=== PATIENT | male | born 1980 | race African-American/Black ===

== ENCOUNTER 2017-05-22 08:51 | Emergency (ER) | payer MEDICAID ==
[~2017-05-22] VITALS: Ht 165.1 cm; Wt 102.0 kg
[2017-05-22 08:57] VITALS: BP 149/91
== END 2017-05-22 10:30 | disposition home or self-care (01) ==
LOC: ER 09:31
DX: S83.91XA Sprain of unspecified site of right knee, initial encounter (principal); F17.200 Nicotine dependence, unspecified, uncomplicated; X58.XXXA Exposure to other specified factors, initial encounter; Y93.89 Activity, other specified; Y92.89 Other specified places as the place of occurrence of the external cause; Y99.8 Other external cause status
CPT/HCPCS: 99283

== ENCOUNTER 2017-06-17 08:38 | Emergency (ER) | payer MEDICAID ==
[~2017-06-17] VITALS: Ht 177.8 cm; Wt 109.0 kg
[2017-06-17 09:59] VITALS: BP 136/86
[2017-06-17] MEDS ORDERED: IBUPROFEN 600MG TABLET PO ONE (10:00)
== END 2017-06-17 12:06 | disposition home or self-care (01) ==
LOC: ER 08:51
DX: M25.461 Effusion, right knee (principal); M19.071 Primary osteoarthritis, right ankle and foot; M79.671 Pain in right foot; F17.200 Nicotine dependence, unspecified, uncomplicated; Z98.890 Other specified postprocedural states; X58.XXXA Exposure to other specified factors, initial encounter; Y93.89 Activity, other specified; Y92.018 Other place in single-family (private) house as the place of occurrence of the external cause
CPT/HCPCS: 73562; 73630; 99284; Z7610

== ENCOUNTER 2017-08-12 10:37 | Emergency (ER) | payer MEDICAID ==
[~2017-08-12] VITALS: Ht 177.8 cm; Wt 106.0 kg
[2017-08-12] MEDS ORDERED: PIPERACILLIN/TAZ 3.375G PREMIX 50 ML IV ONE (12:15)
[2017-08-12] MEDS ORDERED: MORPHINE SULFATE 4 MG/ML CPJ (NOT FOR IM USE) IV STA (12:19)
[2017-08-12] MEDS ORDERED: SODIUM CHLORIDE 0.9% 1,000 ML IV ONE (12:19)
[2017-08-12] MEDS ORDERED: ONDANSETRON HCL 4MG/2ML VIAL IV STA (12:19)
[2017-08-12 12:58] LABS: CHLORIDE 103 mEq/L (98-107)
[2017-08-12 13:01] LABS: BASOPHILS % 0.6 % (0.0-2.0); EOSINOPHILS % 1.3 % (0.0-5.0); HEMATOCRIT. 40.6 % (42.0-52.0); HEMOGLOBIN. 13.9 g/dL (14.0-18.0); LYMPHOCYTES % 26.8 % (20.0-50.0); MEAN CORPUSCULAR HEMOGLOBIN 31.3 pg (28.0-32.0); MEAN CORPUSCULAR VOLUME 91.4 fL (80.0-94.0); MEAN PLATELET VOLUME 7.8 fl (7.4-10.4); MONOCYTES % 11.5 % (2.0-8.0); NEUTROPHILS % 59.8 % (40.0-76.0); PLATELET 292 x1000/uL (130-400); RED BLOOD CELL COUNT 4.44 mill/uL (4.7-6.1); RED CELL DISTRIBUTION WIDTH 13.7 % (11.6-14.6)
[2017-08-12 13:09] LABS: PARTIAL THROMBOPLASTIN TIME 26.8 sec (23.4-31.0); PROTHROMBIN TIME 10.6 sec (9.4-11.6)
[2017-08-12] MEDS ORDERED: SODIUM BICARBONATE 4% (2.4MEQ) 5ML VIAL IV ONE (13:28)
[2017-08-12] MEDS ORDERED: LIDOCAINE HCL/PF 1% 10 MG/ML 5ML VIAL ONE (13:28)
[2017-08-12] MEDS ORDERED: MORPHINE SULFATE 10 MG/ML CPJ IV ONE (14:45)
[2017-08-12] MEDS ORDERED: ONDANSETRON HCL 4MG/2ML VIAL IV ONE (14:45)
[2017-08-12] MEDS ORDERED: KETOROLAC 30MG/ML VIAL IV ONE (16:45)
[2017-08-12] MEDS ORDERED: VANCOMYCIN 1 G PREMIX 200 ML IV SCH (16:45)
[2017-08-12 19:25] VITALS: BP 144/83
== END 2017-08-12 20:35 | disposition left against medical advice (07) ==
LOC: ER 11:32 → EDBEDREQ 16:47 → EDBEDREQTM 16:47 → ENRESERV 19:53 → ER 20:35 → CANBEDREQ 21:42
DX: M10.061 Idiopathic gout, right knee (principal); F17.200 Nicotine dependence, unspecified, uncomplicated; F12.10 Cannabis abuse, uncomplicated; R79.1 Abnormal coagulation profile
CPT/HCPCS: 20611; 36415; 73562; 80048; 83605; 84550; 85025; 85610; 85730; 86140; 87040; 87070; 87205; 89050; 89060; 93005; 96365; 96366; 96367; 96375; 96376; 99291; J1885; J2270; J2405; J2543; J3370; J3490; J7030; L1830; Z7610

== ENCOUNTER 2021-03-11 06:17 | Emergency (ER) | payer SELFPAY ==
[~2021-03-11] VITALS: Ht 175.3 cm; Wt 75.0 kg
[2021-03-11] MEDS ORDERED: HYDROCODONE/ACETAMINOPHEN 5/325MG TABLET PO ONE (08:30)
[2021-03-11] MEDS ORDERED: ONDANSETRON 4MG ODT PO ONE (08:30)
[2021-03-11] MEDS ORDERED: KETOROLAC 60MG/2ML VIAL IM ONE (08:30)
[2021-03-11] MEDS ORDERED: IBUP-2030 MT (09:40)
[2021-03-11] MEDS ORDERED: HYDR-4001 MT (09:40)
[2021-03-11 10:25] VITALS: BP 145/89
== END 2021-03-11 13:21 | disposition home or self-care (01) ==
LOC: ER 06:17
DX: M25.561 Pain in right knee (principal); M71.9 Bursopathy, unspecified; F12.10 Cannabis abuse, uncomplicated
CPT/HCPCS: 73562; 96372; 99283; J1885; L1830; Q0162

== ENCOUNTER 2021-03-23 13:28 | Inpatient (IN) | payer SELFPAY ==
[~2021-03-23] VITALS: Ht 175.3 cm; Wt 81.6 kg
[~2021-03-23 13:28] MED LIST: HYDR-4001 MT; IBUP-2030 MT
[2021-03-23] MEDS ORDERED: KETOROLAC 30MG/ML VIAL IV STA (14:12)
[2021-03-23] MEDS ORDERED: SODIUM CHLORIDE 0.9% 1,000 ML IV ONE (14:15)
[2021-03-23 14:43] LABS: BASOPHILS % 0.6 % (0.0-2.0); EOSINOPHILS % 1.2 % (0.0-5.0); HEMATOCRIT. 34.9 % (42.0-52.0); HEMOGLOBIN. 11.6 g/dL (14.0-18.0); LYMPHOCYTES % 12.6 % (20.0-50.0); MEAN CORPUSCULAR HEMOGLOBIN 33.2 pg (28.0-32.0); MEAN CORPUSCULAR VOLUME 99.6 fL (80.0-94.0); MEAN PLATELET VOLUME 8.1 fl (7.4-10.4); MONOCYTES % 10.1 % (2.0-8.0); NEUTROPHILS % 75.5 % (40.0-76.0); PLATELET 459 x1000/uL (130-400); RED CELL DISTRIBUTION WIDTH 14.9 % (11.6-14.6)
[2021-03-23 14:46] LABS: CHLORIDE 103 mEq/L (98-107)
[2021-03-23] MEDS ORDERED: VANCOMYCIN 1G PREMIX 200 ML IV ONE (16:00)
[2021-03-23] MEDS ORDERED: CEFTRIAXONE 1 G PREMIX 50 ML IV ONE (16:00)
[2021-03-23] MEDS ORDERED: POTASSIUM CHLORIDE 20MEQ TABLET SR PO ONE (16:30)
[2021-03-23] MEDS ORDERED: CLONIDINE 0.1MG TABLET PO PRN (17:30)
[2021-03-23] MEDS ORDERED: DOCUSATE SODIUM 100MG CAPSULE PO PRN (17:30)
[2021-03-23] MEDS ORDERED: MAGNESIUM/ALUMINUM HYDROXIDE/SIMETHICONE 30ML UDC PO PRN (17:30)
[2021-03-23] MEDS ORDERED: LORAZEPAM 2MG/ML CPJ IV PRN (17:30)
[2021-03-23] MEDS ORDERED: HYDROCODONE/ACETAMINOPHEN 5/325MG TABLET PO PRN (17:30)
[2021-03-23] MEDS ORDERED: HYDRALAZINE 20MG/ML VIAL IV PRN (17:30)
[2021-03-23] MEDS ORDERED: IPRATROPIUM/ALBUTEROL 0.5-3(2.5)MG/3ML NEB HHN PRN (17:30)
[2021-03-23] MEDS ORDERED: ONDANSETRON HCL 4MG/2ML INJ IV PRN (17:30)
[2021-03-23] MEDS ORDERED: DIPHENHYDRAMINE 50MG/ML VIAL IV PRN (17:30)
[2021-03-23] MEDS ORDERED: ACETAMINOPHEN 325MG TABLET PO PRN (17:30)
[2021-03-23] MEDS ORDERED: GUAIFENESIN 200MG/10ML SUGAR FREE UDC PO PRN (17:30)
[2021-03-23] MEDS: SODIUM CHLORIDE 0.45% 1,000 ML IV SCH (18:00)
[2021-03-23] MEDS ORDERED: PIPERACILLIN/TAZ 3.375G PREMIX 50 ML IV SCH (18:00)
[2021-03-23] MEDS: THIAMINE HCL 100MG TABLET PO SCH (19:07)
[2021-03-23] MEDS: MULTIVITAMINS,THER W-MINERALS TABLET PO SCH (19:07)
[2021-03-23 20:00] VITALS: BP 149/69
[2021-03-23] MEDS: MORPHINE SULFATE 2 MG/ML CPJ (NOT FOR IM USE) IV PRN (21:31)
[2021-03-23 21:45] VITALS: BP 149/69
[2021-03-23] MEDS: SODIUM CHLORIDE 0.9% INJ 3ML FLUSH IVF SCH (22:00)
[2021-03-24] MEDS ORDERED: PIPERACILLIN/TAZ 3.375G PREMIX 50 ML IV SCH
[2021-03-24] MEDS: PIPERACILLIN/TAZOBACTAM 3.375G in DEXT 5% WATER 50ML IV SCH ×4 (00:36→21:04)
[2021-03-24] MEDS: ENOXAPARIN 40MG/0.4ML SYR SUBCUT SCH ×2 (00:38→21:04)
[2021-03-24 04:00] VITALS: BP 149/79
[2021-03-24] MEDS: MORPHINE SULFATE 2 MG/ML CPJ (NOT FOR IM USE) IV PRN ×2 (05:17→16:20)
[2021-03-24 07:50] LABS: BASOPHILS % 0.4 % (0.0-2.0); EOSINOPHILS % 1.5 % (0.0-5.0); HEMATOCRIT. 27.9 % (42.0-52.0); LYMPHOCYTES % 20.1 % (20.0-50.0); MEAN CORPUSCULAR HEMOGLOBIN 34.4 pg (28.0-32.0); MEAN CORPUSCULAR VOLUME 99.7 fL (80.0-94.0); MEAN PLATELET VOLUME 7.9 fl (7.4-10.4); MONOCYTES % 9.8 % (2.0-8.0); NEUTROPHILS % 68.2 % (40.0-76.0); PLATELET 407 x1000/uL (130-400); RED CELL DISTRIBUTION WIDTH 14.6 % (11.6-14.6)
[2021-03-24 07:52] LABS: CHLORIDE 107 mEq/L (98-107)
[2021-03-24 08:07] LABS: HEMOGLOBIN. 9.6 g/dL (14.0-18.0)
[2021-03-24] MEDS: MULTIVITAMINS,THER W-MINERALS TABLET PO SCH (08:52)
[2021-03-24] MEDS: THIAMINE HCL 100MG TABLET PO SCH (08:52)
[2021-03-24] MEDS: FOLIC ACID 1MG TABLET PO SCH (08:52)
[2021-03-24] MEDS: SODIUM CHLORIDE 0.45% 1,000 ML IV SCH (10:39)
[2021-03-24 12:00] VITALS: BP 135/75
[2021-03-24] MEDS: SODIUM CHLORIDE 0.9% INJ 3ML FLUSH IVF SCH ×2 (14:00→21:04)
[2021-03-24] MEDS ORDERED: NALOXONE HCL 0.4MG/ML VIAL IV PRN (14:30)
[2021-03-24 16:00] VITALS: BP 154/84
[2021-03-24] MEDS: PREDNISONE 10MG TABLET PO SCH (19:04)
[2021-03-24] MEDS: CELECOXIB 200MG CAPSULE PO SCH (19:04)
[2021-03-24 20:00] VITALS: BP 169/97
[2021-03-24] MEDS ORDERED: HYDRALAZINE 10 MG in SODIUM CHLORIDE 0.9% 49.5 ML IV PRN (22:45)
[2021-03-25] VITALS: BP 114/57
[2021-03-25] MEDS: SODIUM CHLORIDE 0.45% 1,000 ML IV SCH ×2 (02:45→20:00)
[2021-03-25 04:00] VITALS: BP 130/65
[2021-03-25] MEDS: SODIUM CHLORIDE 0.9% INJ 3ML FLUSH IVF SCH ×3 (06:46→21:44)
[2021-03-25] MEDS: PIPERACILLIN/TAZOBACTAM 3.375G in DEXT 5% WATER 50ML IV SCH ×3 (06:46→21:28)
[2021-03-25 08:00] VITALS: BP 151/81
[2021-03-25] MEDS: THIAMINE HCL 100MG TABLET PO SCH (08:57)
[2021-03-25] MEDS: PREDNISONE 10MG TABLET PO SCH ×2 (08:57→16:50)
[2021-03-25] MEDS: CELECOXIB 200MG CAPSULE PO SCH ×2 (08:57→16:38)
[2021-03-25] MEDS: FOLIC ACID 1MG TABLET PO SCH (08:57)
[2021-03-25] MEDS: MULTIVITAMINS,THER W-MINERALS TABLET PO SCH (08:57)
[2021-03-25] MEDS ORDERED: PREDNISONE 10MG TABLET PO SCH (09:00)
[2021-03-25 12:00] VITALS: BP 138/78
[2021-03-25 16:00] VITALS: BP 136/54
[2021-03-25 20:00] VITALS: BP 140/69
[2021-03-25] MEDS: ENOXAPARIN 40MG/0.4ML SYR SUBCUT SCH (21:28)
[2021-03-26] VITALS: BP 136/72
[2021-03-26 04:00] VITALS: BP 143/71
[2021-03-26] MEDS: PIPERACILLIN/TAZOBACTAM 3.375G in DEXT 5% WATER 50ML IV SCH ×2 (05:40→13:07)
[2021-03-26] MEDS: SODIUM CHLORIDE 0.9% INJ 3ML FLUSH IVF SCH ×2 (05:40→13:07)
[2021-03-26 08:00] VITALS: BP 159/81
[2021-03-26] MEDS: THIAMINE HCL 100MG TABLET PO SCH (08:20)
[2021-03-26] MEDS: FOLIC ACID 1MG TABLET PO SCH (08:20)
[2021-03-26] MEDS: PREDNISONE 10MG TABLET PO SCH (08:20)
[2021-03-26] MEDS: MULTIVITAMINS,THER W-MINERALS TABLET PO SCH (08:20)
[2021-03-26] MEDS: CELECOXIB 200MG CAPSULE PO SCH (08:20)
[2021-03-26 12:00] VITALS: BP 139/63
[2021-03-26] MEDS: SODIUM CHLORIDE 0.45% 1,000 ML IV SCH (12:40)
[2021-03-26 13:39] VITALS: BP 139/63
[2021-03-27 13:06] LABS: ANTI-DNA DOUBLE STRANDED QUANT < 1 IU/mL (0-9); ANTI-MYELOPEROXIDASE AB < 9.0 U/mL (0.0-9.0); ANTI-PROTEINASE 3 ABS < 3.5 U/mL (0.0-3.5)
[2021-03-27 19:06] LABS: ANA IFA Positive (.)
[2021-03-28 10:06] LABS: ALDOLASE 3.8 U/L (3.3-10.3)
[2021-03-28 13:11] LABS: ATYPICAL P-ANCA <1:20 titer (Neg:<1:20); CYTOPLASMIC C-ANCA <1:20 titer (Neg:<1:20); PERINUCLEAR P-ANCA <1:20 titer (Neg:<1:20)
== END 2021-03-26 16:06 | disposition home or self-care (01) | DRG 351 ==
LOC: ER 14:41 → 6EST 16:34 → ENRESERV 20:51
PROVIDERS: ADMIT Internal Medicine; ATTEND Internal Medicine
DX: M13.161 Monoarthritis, not elsewhere classified, right knee (principal); L03.115 Cellulitis of right lower limb; R65.10 Systemic inflammatory response syndrome (SIRS) of non-infectious origin without acute organ dysfunction; E87.6 Hypokalemia; Z20.822 Contact with and (suspected) exposure to COVID-19; M23.91 Unspecified internal derangement of right knee
CPT/HCPCS: 36415; 71045; 73130; 73562; 73610; 73630; 73721; 80053; 82085; 83520; 84550; 85025; 85651; 86140; 86225; 86256; 86431; 87426; 93005; 93970; 99291; J0696; J1650; J1885; J2270; J2405; J2543; J3370; J7030; J7060; J7512